=== PATIENT | male | born 1960 | race Caucasian/White ===

== ENCOUNTER 2016-12-01 13:26 | Emergency (ER) | payer SELFPAY ==
[~2016-12-01] VITALS: Ht 175.3 cm; Wt 112.0 kg
[2016-12-01 13:35] VITALS: Ht 175.3 cm; Wt 112.0 kg
--- NOTE | 2016-12-01 16:09 | ERD ---
ER Documentation Chief Complaint Date/Time DATE: 12/01/16 TIME: 16:09 Chief Complaint SHAKY , PALPITAIONS TODAY AFTER DRINKING ALCOHOL LAST NIGHT HPI Patient is a 56-year-old male with no medical problems who presents feeling lightheaded. He has been very stressed recently because of his job. He is not sleeping well. He admits to drinking alcohol and using cocaine. 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 Upon review of old medical records he has not had any previous visits to the emergency department. There is no suicidal ideation or homicidal ideation. He is tearful. ROS All systems reviewed and are negative except as per history of present illness. Allergies Allergies: Coded Allergies: No Known Allergy (Unverified , 12/01/16) PMhx/Soc Medical and Surgical Hx: pt denies Medical Hx, pt denies Surgical Hx FmHx Family History: No diabetes Physical Exam Vitals Vital Signs Date Time Temp Pulse Resp B/P Pulse Ox O2 Delivery O2 Flow Rate FiO2 12/01/16 13:35 98.1 68 18 146/86 97 Physical Exam Const: No acute distress Head: Atraumatic Eyes: Normal Conjunctiva ENT: Normal External Ears, Nose and Mouth. Neck: Full range of motion..~ No meningismus. Resp: Clear to auscultation bilaterally Cardio: Regular rate and rhythm, no murmurs Abd: Soft, non tender, non distended. Normal bowel sounds Skin: No petechiae or rashes Back: No midline or flank tenderness Ext: No cyanosis, or edema Neur: Awake and alert Psych: Denies suicidal or homicidal ideation Procedures/MDM EKG read by me: Rate/Rhythm: Regular rate and rhythm at a rate of 68 Intervals: Normal Impression: No evidence of ischemia or arrhythmia Accu-Chek is normal. Patient is a 56-year-old male who presents feeling lightheaded and distress. I believe he likely had a panic attack. He said that he cried in the waiting room and feels much better now. He denies suicidal or homicidal ideation. At this point I believe outpatient management is appropriate. I instructed him not to drink alcohol to excess and cannot use illicit drugs. He can return for any worsening symptoms. I do not believe he requires a 5150 hold at this time. Departure Diagnosis: Primary Impression: Panic attack Condition: Fair Patient Instructions: Panic Attack Referrals: [facility] YOU HAVE RECEIVED A MEDICAL SCREENING EXAM AND THE RESULTS INDICATE THAT YOU DO NOT HAVE A CONDITION THAT REQUIRES URGENT TREATMENT IN THE EMERGENCY DEPARTMENT. FURTHER EVALUATION AND TREATMENT OF YOUR CONDITION CAN WAIT UNTIL YOU ARE SEEN IN YOUR DOCTORS OFFICE WITHIN THE NEXT 1-2 DAYS. IT IS YOUR RESPONSIBILITY TO MAKE AN APPOINTMENT FOR FOLOW-UP CARE. IF YOU HAVE A PRIMARY DOCTOR --you should call your primary doctor and schedule an appointment IF YOU DO NOT HAVE A PRIMARY DOCTOR YOU CAN CALL OUR PHYSICIAN REFERRAL HOTLINE AT IF YOU CAN NOT AFFORD TO SEE A PHYSICIAN YOU CAN CHOSE FROM THE FOLLOWING [facility] [address] [facility]. [facility] [address] [facility] [facility] [address] [facility] [facility] [address] [facility]. [facility] [address] [facility] [address] Additional Instructions: Call your primary care doctor TOMORROW for an appointment during the next 2-3 days.See the doctor sooner or return here if your condition worsens before your appointment time. CHARBEL DRISCOLL MD Dec 01, 2016 16:09
== END 2016-12-01 16:30 | disposition home or self-care (01) ==
LOC: E/R 13:26
DX: F41.0 Panic disorder [episodic paroxysmal anxiety] (principal); R40.2142 Coma scale, eyes open, spontaneous, at arrival to emergency department; R40.2252 Coma scale, best verbal response, oriented, at arrival to emergency department; R40.2362 Coma scale, best motor response, obeys commands, at arrival to emergency department
CPT/HCPCS: 93005